=== PATIENT | female | born 1960 | race Caucasian/White ===

== ENCOUNTER 2019-04-30 23:49 | Emergency (ER) | payer OTHER ==
--- NOTE | 2019-05-01 00:13 | ERPHSYRPT ---
- History of Present Illness Time Seen by Provider: 05/01/19 00:01 Source: patient Exam Limitations: no limitations Patient Subjective Stated Complaint: pt states I have nasal congestion and the nasal dip is making my throat very sore. Pt states, "it feels like a large marble is lodged in my throat". Triage Nursing Assessment: pt aetox3, pleasant. Pt ambulated in ER to rm 4, lungs clear, heart tones reg, pt had dry nonprod cough. c/o sore throat and nasal drainage, states, "It feels like a sinus infection". Physician History: C/o sore throat, mild cough x 2 days, no difficulty swallowing liquids, no fever , headaches, nausea, vomiting, chest pain or SOB. She took a Claritin tonight. She talks in sentences, no stidor or muffled voice. Timing/Duration: gradual onset Severity: moderate ENT Location: throat Prearrival Treatment: no prearrival treatment Modifying Factors: Improves With: nothing Associated Symptoms: cough, nasal congestion/drainage, sinus infection, sore throat Allergies/Adverse Reactions: ciprofloxacin [From Cipro] Allergy (Mild, Verified 05/01/19 00:04) Stomach Cramps sulfamethoxazole [From Bactrim] Allergy (Mild, Verified 05/01/19 00:04) Diarrhea trimethoprim [From Bactrim] Allergy (Mild, Verified 05/01/19 00:04) Diarrhea steriods Adverse Reaction (Mild, Uncoded 03/31/13 10:21) Vomiting Home Medications: Prilosec Otc 20 mg PO BID 03/18/13 [History] Loratadine 10 mg [Claritin 10 mg] 10 mg PO DAILY 05/01/19 [History] raNITIdine HCl [Zantac] 150 mg PO HS 05/01/19 [History] Hx Tetanus, Diphtheria Vaccination/Date Given: Yes Hx Influenza Vaccination/Date Given: No Hx Pneumococcal Vaccination/Date Given: No Immunizations Up to Date: Yes - Review of Systems Constitutional: No Symptoms Eyes: No Symptoms Ears, Nose, & Throat: Nose Discharge, Sinus Drainage, Throat Pain, No Hoarse, No Painful Swallowing, No Stridor Respiratory: Cough Cardiac: No Symptoms Abdominal/Gastrointestinal: No Symptoms Musculoskeletal: No Symptoms Skin: No Symptoms Neurological: No Symptoms All Other Systems: Reviewed and Negative - Past Medical History Pertinent Past Medical History: Yes Neurological History: No Pertinent History ENT History: No Pertinent History Cardiac History: No Pertinent History Respiratory History: No Pertinent History Endocrine Medical History: No Pertinent History Musculoskeletal History: Arthritis GI Medical History: Diverticulosis, GERD, Gallbladder Disease History: Other Psycho-Social History: No Pertinent History Female Reproductive Disorders: No Pertinent History Other Medical History: sysyolic bladder, prone to uti - Past Surgical History Past Surgical History: Yes Neuro Surgical History: No Pertinent History Cardiac: No Pertinent History Respiratory: No Pertinent History Gastrointestinal: Cholecystectomy Genitourinary: No Pertinent History Musculoskeletal: No Pertinent History Female Surgical History: Hysterectomy Other Surgical History: partial hysterectomy - Social History Smoking Status: Never smoker Exposure to second hand smoke: No Drug Use: none Patient Lives Alone: No - Female History Hx Now: No - Nursing Vital Signs Nursing Vital Signs: Initial Vital Signs Temperature 98.0 F 05/01/19 00:06 Pulse Rate 80 05/01/19 00:06 Respiratory Rate 17 05/01/19 00:06 Blood Pressure 153/93 05/01/19 00:06 O2 Sat by Pulse Oximetry 99 05/01/19 00:06 Pain Scale Pain Intensity 10 - Physical Exam General Appearance: no apparent distress Eye Exam: bilateral eye: normal inspection Ear Exam: bilateral ear: canal normal, TM normal Nasal Exam: normal inspection Throat Exam: moist mucus membranes, No tonsillar exudate, No voice changes Neck Exam: normal inspection, non-tender, supple, trachea midline, No JVD, No lymphadenopathy (R), No lymphadenopathy (L) Cardiovascular/Respiratory Exam: chest non-tender, normal breath sounds, regular rate/rhythm, heart sounds normal, no JVD Abdominal Exam: non-tender, soft Neurologic Exam: alert, oriented x 3, cooperative, normal mood/affect Skin Exam: normal color, warm, dry, No rash, No petechiae, No cyanosis SpO2 Interpretation: normal SpO2: 99 O2 Delivery: Room Air - Course Nursing assessment & vital signs reviewed: Yes - Radiology Exams Chest X-ray Interpretation: Interpreted by me, Negative Other X-ray Interpretation: Interpreted by me, Negative (soft tissue neck) Ordered Tests: Active Orders 24 hr Category Date Time Status CHEST 2 VIEWS (PA AND LAT) Stat Exams 05/01/19 00:13 Ordered NECK SOFT TISSUE Stat Exams 05/01/19 00:13 Ordered Lab/Rad Data: Laboratory Results 05/01/19 Range/Units 00:15 Group A Strep Antibody NEGATIVE (NEGATIVE) - Progress Progress: unchanged Progress Note: 05/01/19 01:16 Pt was educated about her results, she is being discharged to start Z-Pravin this morning, continue Selene and drink plenty of fluids, gargle frequently and follow up with her physician in 3-4 days. Counseled pt/family regarding: lab results, diagnosis, need for follow-up, rad results - Departure Departure Disposition: Home Clinical Impression: Sinusitis Qualifiers: Sinusitis location: unspecified location Chronicity: acute Recurrence: recurrent Qualified Code(s): J01.91 - Acute recurrent sinusitis, unspecified Condition: Stable Critical Care Time: No Referrals: BLAKE PEREZ [NON-STAFF PHY W/O PRIVILEGES] - Instructions: Sore Throat, Adult (DC), Viral Pharyngitis (DC), Sinusitis, Adult (DC) Additional Instructions: Rest x 2-3 days, drink plenty of fluids, gargle frequently with warm saline water, and follow up with your physician in 3-4 days, return if severe pain, swelling, difficulty swallow or breathing, vomiting, fever> 102 F! Prescriptions: Azithromycin [Zithromax] 250 mg PO UD 5 Days #1 pack
[2019-05-01 01:26] VITALS: BP 142/94; PULSE 77; O2SAT 95
--- NOTE | 2019-05-01 09:22 | XRAY ---
Indication: Cough. Comparison: None PA/lateral chest demonstrates a few calcified granulomas, largest right mid lung. No focal infiltrate, consolidation, or large effusion. Heart and mediastinal structures within normal limits. Bony thorax intact with mild pectus excavatum deformity. Impression: Nonacute chest with chronic features.
--- NOTE | 2019-05-01 09:25 | XRAY ---
Indication: Painful swallowing. Comparison: None AP/lateral soft tissue neck demonstrates patent supra and infraglottic airway. Normal epiglottis. No radiopaque foreign body. Visualized cervical spine intact with minimal C4-C6 degenerative changes.
== END 2019-05-01 01:27 | disposition home or self-care (01) ==
LOC: ED 23:49
DX: J01.91 Acute recurrent sinusitis, unspecified (principal)
CPT/HCPCS: 70360; 71046; 87651; 99284

== ENCOUNTER 2019-08-12 19:25 | Emergency (ER) | payer MEDICAID ==
--- NOTE | 2019-08-12 19:29 | ERPHSYRPT ---
- History of Present Illness Time Seen by Provider: 08/12/19 19:40 Source: patient Exam Limitations: no limitations Physician History: 59 y/o white female presents with left lower ext pain for 2 weeks. pt has h/o superficial varicose veins. her pcp is aware of her leg complaint. pt denies injury. pt denies fever and denies soa. pt told to obtain a venous doppler left lower ext through their office if sx persist. Method of Injury: other (no injury) Occurred: other (2 weeks ago) Quality: aching, throbbing Severity of Pain-Max: mild Severity of Pain-Current: mild Lower Extremities Pain: leg: left Modifying Factors: Improves With: nothing Associated Symptoms: none Allergies/Adverse Reactions: ciprofloxacin [From Cipro] Allergy (Mild, Verified 08/09/19 08:48) Stomach Cramps sulfamethoxazole [From Bactrim] Allergy (Mild, Verified 08/09/19 08:48) Diarrhea trimethoprim [From Bactrim] Allergy (Mild, Verified 08/09/19 08:48) Diarrhea steriods Adverse Reaction (Mild, Uncoded 08/09/19 08:48) Vomiting Home Medications: Prilosec Otc 20 mg PO BID 03/18/13 [History] Loratadine 10 mg [Claritin 10 mg] 10 mg PO DAILY PRN PRN 05/01/19 [History ] raNITIdine HCl [Zantac] 150 mg PO HS 05/01/19 [History] Estrogens,Conjugated [Premarin Vaginal Cream] 30 gm INTRAVAGIN 3XW 08/12/19 [ History] Hx Tetanus, Diphtheria Vaccination/Date Given: Yes Hx Influenza Vaccination/Date Given: No Hx Pneumococcal Vaccination/Date Given: No - Review of Systems Constitutional: No Symptoms Eyes: No Symptoms Ears, Nose, & Throat: No Symptoms Respiratory: No Symptoms Cardiac: No Symptoms Abdominal/Gastrointestinal: No Symptoms Genitourinary Symptoms: No Symptoms Musculoskeletal: Other (left lower leg pain ) Skin: No Symptoms Neurological: No Symptoms Psychological: No Symptoms Endocrine: No Symptoms Hematologic/Lymphatic: No Symptoms Immunological/Allergic: No Symptoms All Other Systems: Reviewed and Negative - Past Medical History Pertinent Past Medical History: Yes Neurological History: No Pertinent History ENT History: No Pertinent History Cardiac History: No Pertinent History Respiratory History: No Pertinent History Endocrine Medical History: No Pertinent History Musculoskeletal History: Arthritis GI Medical History: Diverticulosis, GERD, Gallbladder Disease History: Other Psycho-Social History: No Pertinent History Female Reproductive Disorders: No Pertinent History Other Medical History: sysyolic bladder, prone to uti - Past Surgical History Past Surgical History: Yes Neuro Surgical History: No Pertinent History Cardiac: No Pertinent History Respiratory: No Pertinent History Gastrointestinal: Cholecystectomy Genitourinary: No Pertinent History Musculoskeletal: No Pertinent History Female Surgical History: Hysterectomy Other Surgical History: partial hysterectomy - Social History Smoking Status: Never smoker Exposure to second hand smoke: No Drug Use: none Patient Lives Alone: No - Nursing Vital Signs Nursing Vital Signs: Initial Vital Signs Temperature 97.9 F 08/12/19 19:35 Pulse Rate 78 08/12/19 19:35 Respiratory Rate 18 08/12/19 19:35 Blood Pressure 158/86 08/12/19 19:35 O2 Sat by Pulse Oximetry 98 08/12/19 19:35 Pain Scale Pain Intensity [Left Knee] 9 Pain Intensity 9 - Physical Exam General Appearance: no apparent distress, alert, anxiety Eyes, Ears, Nose, Throat Exam: normal ENT inspection, moist mucous membranes Neck Exam: normal inspection, non-tender, supple, full range of motion Cardiovascular/Respiratory Exam: chest non-tender Gastrointestinal/Abdominal Exam: non-tender Back Exam: normal inspection, normal range of motion, No CVA tenderness, No vertebral tenderness Hips Exam: bilateral: non-tender, normal inspection, normal range of motion, no evidence of injury Legs Exam: right leg: non-tender, left leg: soft tissue tenderness, bilateral leg: normal inspection, normal range of motion, no evidence of injury Knees Exam: bilateral knee: non-tender, normal inspection, normal range of motion, no evidence of injury Ankle Exam: bilateral ankle: non-tender, normal inspection, normal range of motion, no evidence of injury Foot Exam: bilateral foot: non-tender, normal inspection, normal range of motion , no evidence of injury Neuro/Tendon Exam: normal sensation, normal motor functions, normal tendon functions, no evidence tendon injury Mental Status Exam: alert, oriented x 3, cooperative Skin Exam: normal color, warm, dry SpO2 Interpretation: normal O2 Delivery: Room Air - Course Nursing assessment & vital signs reviewed: Yes Ordered Tests: Active Orders 24 hr Category Date Time Status D-DIMER QUANTITATION Stat Lab 08/12/19 20:33 Received Lab/Rad Data: Laboratory Results 08/12/19 Range/Units 20:33 D-Dimer 717 H* (215-500) ng/mL - Progress Progress: unchanged Counseled pt/family regarding: lab results, diagnosis, need for follow-up - Departure Departure Disposition: Home Clinical Impression: Elevated d-dimer, Left leg pain Condition: Stable Critical Care Time: No Referrals: SWATI BARBOSA MD [Primary Care Provider] - Additional Instructions: Follow up tomorrow at radiology department for your venous doppler of your leg. follow up with Dr. Barbosa office tomorrow after test completed to obtain results.
[2019-08-12] MEDS ORDERED: ENOXAPARIN SODIUM SQ ONE ×2 (20:55→21:01)
[2019-08-12 21:21] VITALS: BP 137/85; PULSE 83; O2SAT 98
== END 2019-08-12 21:23 | disposition home or self-care (01) ==
LOC: ED 19:25
DX: R79.89 Other specified abnormal findings of blood chemistry (principal); M79.605 Pain in left leg
CPT/HCPCS: 36415; 85379; 96372; 99283; J1650

== ENCOUNTER 2021-06-01 07:44 | Day surgery (SDC) | payer OTHER ==
[2021-06-01] MEDS ORDERED: Lactated Ringers 1,000 ML IV ONE (07:56)
[2021-06-01] MEDS ORDERED: Lactated Ringers 1,000 ML IV SCH (08:00)
--- NOTE | 2021-06-01 08:03 | HP ---
DATE OF SURGERY: 06/01/2021 HISTORY OF PRESENT ILLNESS: The patient is a 61 year-old last colonoscopy was five years. She is in need of a follow up screening colonoscopy. She denies any bloody stools, no change in bowel movements, no pain. She does have some gas and bloating at times. Family history of father with colon cancer. Family history of colon cancer and is in need of follow up screening colonoscopy. PAST MEDICAL HISTORY: She has a little bit of reflux and some allergies. PAST SURGICAL HISTORY: She had colonoscopy in the past. She had cholecystectomy, partial hysterectomy, tubal in the past. MEDICATIONS: Omeprazole, allergy eye drops, Claritin. She has been on some fluconazole drops and Premarin in the past as well. ALLERGIES: CIPRO. BACTRIM. FAMILY HISTORY: Father with colon cancer. Diabetes. SOCIAL HISTORY: No smoking or alcohol abuse. REVIEW OF SYSTEMS: Fourteen systems reviewed. No chest pain or palpitations. Other systems negative or noncontributory as above and per preadmission questionnaire. PHYSICAL EXAMINATION: GENERAL: No acute distress. HEENT: Sclerae nonicteric. NECK: No JVD. CHEST: Equal excursion, nonlabored breathing. CVS: Regular rate and rhythm. ABDOMEN: Soft. No peritoneal signs. EXTREMITIES: No significant edema. NEURO: Alert, oriented, moving extremities symmetrically. No gross motor deficits noted. RECTAL: Deferred timed to endoscopy exam. PSYCH: Appropriate mood and affect. IMPRESSION: Family history of colon cancer. She is in need of follow up screening colonoscopy. I feel she is a candidate. She was shown the risk sheet and explained the procedure in detail but not limited to bleeding or infection, risk of bowel injury or perforation possibly requiring open procedure, risk of missed or nondiagnosis or incomplete exam possibly requiring barium enema, other studies or procedures, general risk of anesthesia or sedation, risk of bowel prep but not limited to, consent obtained, will proceed with outpatient follow up colonoscopy.
[2021-06-01] MEDS ORDERED: DIPRIVAN 200 MG/20 ML IV ONE ×2 (08:19→11:06)
[2021-06-01 12:37] VITALS: BP 131/86; PULSE 90; O2SAT 95
--- NOTE | 2021-06-02 09:12 | OP ---
SURGERY DATE/TIME: 06/01/2021 1100 PREOPERATIVE DIAGNOSES: 1) Need for screening colonoscopy. 2) Family history of colon cancer. POSTOPERATIVE DIAGNOSES: 1) Small sigmoid colon polyp. 2) Small raised lesion versus early polyp versus hyperplastic lesion ascending colon. 3) A few tiny diverticula. 4) Fair bowel prep. 5) Withdrawal time 9 minutes. 6) ASA Class II. 7) Question of telangiectasia versus venous congestion from her bowel prep but no active bleeding. PROCEDURES: 1) Colonoscopy to cecum. 2) Hot biopsy removal of small raised area ascending colon. 3) Hot biopsy polypectomy removal of small sigmoid colon polyp. SURGEON: Dr. Hector Amezquita. MINING SUPPORT WORKER: Gabriel West, Medical Student III. ANESTHESIA: MAC. ESTIMATED BLOOD LOSS: Minimal. INDICATIONS: As noted above. Risks and benefits explained in detail but not limited to and consent obtained. DESCRIPTION OF PROCEDURE AND FINDINGS: The patient is taken to the operating room. MAC anesthesia introduced. After official time out and no disagreement with planned procedure, digital rectal exam did not reveal any rectal masses. Video colonoscope inserted and passed up through the slightly tortuous sigmoid, descending, transverse and ascending colon. With external pressure the scope able to be passed around to the cecum. Appendiceal orifice and valve well visualized and photo documented. Palpation of the right lower quadrant to confirm location. The scope is slowly and carefully withdrawn over the next 9 minutes removing a small early raised lesion versus a very early polyp or hyperplastic lesion in the ascending colon removed with hot biopsy forceps with brief bursts of cautery. Good hemostasis noted. Otherwise there were no signs of any large polyps, masses or any lesions. She did have some evidence of question of telangiectasia versus venous congestion from her bowel prep but no active bleeding. The scope is slowly and carefully withdrawn over the next 9 minutes. Again hot biopsy removal of small raised lesion versus early polyp in the ascending colon. She did have very small 1.5 to 2 mm polyp in the sigmoid colon whether this is early hyperplastic versus early adenoma is removed with hot biopsy forceps with brief bursts of cautery. Good hemostasis noted. The scope was then slowly and carefully withdrawn. She had a few tiny diverticula in the left colon. No signs of any large polyps, masses or obstructing lesion. The scope is withdrawn. The patient tolerated the procedure well. There were no immediate complications. There was no family available to discuss the findings with out in the waiting area.
== END 2021-06-01 12:30 | disposition home or self-care (01) ==
LOC: SDC 07:44
PROVIDERS: ATTEND Surgery
DX: Z12.11 Encounter for screening for malignant neoplasm of colon (principal); Z80.0 Family history of malignant neoplasm of digestive organs; K57.30 Diverticulosis of large intestine without perforation or abscess without bleeding; K63.5 Polyp of colon
CPT/HCPCS: J2704